=== PATIENT | male | born 1970 | race Two or more races ===

== ENCOUNTER 2019-02-07 20:51 | Emergency (ER) | payer SELFPAY ==
[2019-02-07] MEDS ORDERED: DIPH/PERTUSS(ACELL)/TETANUS VAC/PF 0.5 ML SYR (>=10YO) IM ONE (22:43)
--- NOTE | 2019-02-07 22:45 | ER Document Report ---
ED Medical Screen (RME) - General Chief Complaint: Laceration Stated Complaint: FINGER LACERATION Time Seen by Provider: 02/07/19 22:43 Mode of Arrival: Ambulatory Information source: Patient Notes: Patient is a 48-year-old male with complaints of laceration to his right index finger. Patient reports he was cooking dinner when he cut himself with a steel knife. There is a laceration to the tip of the right index finger with nail involvement. No active bleeding noted at this time. Patient has full range of motion and sensation to the affected digit. Patient is unsure when his last te tanus was. Patient denies any chronic medical issues. I have greeted and performed a rapid initial assessment of this patient. A comprehensive ED assessment and evaluation of the patient, analysis of test results and completion of the medical decision making process will be conducted by additional ED providers. Dictation of this chart was performed using voice recognition software; therefore, there may be some unintended grammatical errors. Physical Exam - Vital signs Vitals: Temp Pulse Resp BP Pulse Ox 97.8 F 69 18 135/89 H 98 02/07/19 21:50 02/07/19 21:50 02/07/19 21:50 02/07/19 21:50 02/07/19 21:50 Course - Vital Signs Vital signs: Temp Pulse Resp BP Pulse Ox 97.8 F 69 18 135/89 H 98 02/07/19 21:50 02/07/19 21:50 02/07/19 21:50 02/07/19 21:50 02/07/19 21:50
[2019-02-07] MEDS ORDERED: LIDOCAINE 1% INJ-PF (10 MG/ML) 30 ML SDV INJ ONE (23:29)
--- NOTE | 2019-02-07 23:31 | ER Document Report ---
ED General - General Chief Complaint: Laceration Stated Complaint: FINGER LACERATION Time Seen by Provider: 02/07/19 22:43 Mode of Arrival: Ambulatory Information source: Patient TRAVEL OUTSIDE OF THE [place] IN LAST 30 DAYS: No - HPI Patient complains to provider of: Left index finger laceration Onset: Just prior to arrival Onset/Duration: Sudden Severity: Severe Pain Level: 5 Associated symptoms: None Exacerbated by: Denies Relieved by: Denies Similar symptoms previously: No Recently seen / treated by doctor: No Notes: 48-year-old male coming in today with left index finger laceration. He cut it with a metal knife. Tetanus shot was already given. - Related Data Allergies/Adverse Reactions: No Known Allergies Allergy (Verified 02/07/19 23:34) Past Medical History - General Information source: Patient - Social History Smoking Status: Current Every Day Smoker Family History: Reviewed & Not Pertinent Review of Systems - Review of Systems Notes: Constitutional: No fevers. No chills. EENT: No eye redness. No eye pain. No ear pain. No sore throat. Cardiovascular: No chest pain. No palpitations. Respiratory: No cough. No shortness of breath. No respiratory distress. Gastrointestinal: No abdominal pain. No nausea, vomiting, or diarrhea. Genitourinary: Atraumatic. No lesions. No pain. No discharge. Musculoskeletal: Atraumatic. No swelling. No deformities. Positive left INDEX finger LACERATION Skin: No rash or lesions. Lymphatic: No swollen lymph nodes. Neurologic: No headache. No syncope. Psychiatric: No suicidal or homicidal ideation. -: Yes ROS unobtainable due to patient's medical condition Physical Exam - Vital signs Vitals: Temp Pulse Resp BP Pulse Ox 97.8 F 69 18 135/89 H 98 02/07/19 21:50 02/07/19 21:50 02/07/19 21:50 02/07/19 21:50 02/07/19 21:50 - Notes Notes: General: Well-developed, well-nourished. In no acute distress. Non-toxic appearing. Cardiac: Well-perfused. Regular rate and rhythm. No murmurs, rubs, or gallops. Pulmonary: No respiratory distress. No cyanosis. Bilateral lung fiels are clear to auscultation. Abdominal: Non-distended. Non-rigid. Bowels sounds are present in all four quadrants. No guarding or rebound. HEENT: Head is atraumatic. Conjunctivae not reddened. No tearing. PERRL. EOMI. Orbits atraumatic. No periorbital swelling or erythema. Oropharynx is without erythema, swelling, or exudates. Neck: Supple. No adenopathy. No meningismus. Dermatologic: Warm with good turgor. No rash. Atraumatic. Chest: Atraumatic. No chest wall tenderness to palpation. Musculoskeletal: Moves all extremities well. No range of motion deficits. no muscular or joint tenderness. No paraspinal muscle tenderness. no midline spinal tenderness or step-off. There is a 2 cm laceration to lateral aspect of the tip of the left index finger. No active bleeding no nail involvement. Good range of motion. Neurovascularly intact Genitourinary: Examination deferred Neurologic: No gross neurologic deficits. Psychiatric: Normal mood. Course - Vital Signs Vital signs: Temp Pulse Resp BP Pulse Ox 97.8 F 69 18 135/89 H 98 02/07/19 21:50 02/07/19 21:50 02/07/19 21:50 02/07/19 21:50 02/07/19 21:50 Procedures - Laceration/Wound Repair Left index finger Time completed: 00:40 Wound length (cm): 3 Wound's Depth, Shape: Linear Laceration pre-procedure: Sterile PPE donned, Sterile drapes applied, Shur-Clens applied Anesthetic type: 1% Lidocaine Volume Anesthetic (mLs): 6 Wound explored: Contaminated Wound Repaired With: Sutures Suture Size/Type: 5:0, Nylon Number of Sutures: 5 Layer Closure?: No Post-procedure wound care: Sterile dressing applied Post-procedure NV exam normal: Yes Complications: No Notes: 02/08/19 00:41 Patient tolerated the procedure well Discharge - Discharge Clinical Impression: Finger laceration Qualifiers: Encounter type: initial encounter Finger: index finger Damage to nail status: without damage Foreign body presence: without foreign body Laterality: left Qualified Code(s): S61.211A - Laceration without foreign body of left index finger without damage to nail, initial encounter Condition: Good Disposition: HOME, SELF-CARE Instructions: Antibiotic Ointment Protection ([facility]), Laceration Care ([facility]), Soap Cleansing ([facility]), Tetanus Immunization Given ([facility]) Additional Instructions: LOS PUNTOS SE TIENEN QUE SACAR EN 10-14 BHANDARI. SI UD. CONCOCE A ALGUIEN QUE PUEDE SACARLOS POR UD, ESTARA KAMARI. SI NECESITA QUE NOSOTROS LOS SACQUE, FAVOR DE VOLVER A LA WILLY DE EMERGENCIAS EN 10 BHANDARI PARA HACERLO. MANTENGA LA HERIDA LIMPIA CON JABON Y AGUA. SI DESEA USAR MELVI POMADA ANTIBACTERIAL (NEOSPORIN O BACITRACIN) PUEDE APLICARSELA MELVI VEZ AL SNEHAL. SI UD. SOSPECHA MELVI INFECCION ES MEJOR QUE VUELVA AQUI PARA REVISARLA OTRA VEZ. Forms: Special Work Note Referrals: [facility] [Provider Group] - 02/18/19 Print Language: Slovenian
[2019-02-08 01:02] VITALS: BP 128/90
== END 2019-02-08 01:14 | disposition home or self-care (01) ==
LOC: ER 20:51
PROC: 0HQGXZZ Repair Left Hand Skin, External Approach (ICD-10-PCS; principal; 2019-02-07)
DX: S61.211A Laceration without foreign body of left index finger without damage to nail, initial encounter (principal); W26.0XXA Contact with knife, initial encounter; F17.200 Nicotine dependence, unspecified, uncomplicated
CPT/HCPCS: 99282; 90471; 90715; 12002; J3490